=== PATIENT | female | born 1970 | race Two or more races ===

== ENCOUNTER 2020-08-25 11:06 | Outpatient (REF) | payer OTHER, SELFPAY ==
--- NOTE | 2020-08-25 11:24 | XR_ITS ---
EXAMINATION: XR CERVICAL SPINE CLINICAL INFORMATION: Cervicalgia COMPARISON: None TECHNIQUE: 5 views of the cervical spine. FINDINGS: There are no prevertebral soft tissue or bony abnormalities demonstrated. No compression fractures or subluxations are identified. Alignment is maintained at the atlanto-axial articulation. The disc spaces are preserved. Tiny endplate osteophytes are seen at the inferior endplates of C3, C4, C5, and C6. The prevertebral soft tissues are normal. The foramina are patent. The lung apices are clear. IMPRESSION: Tiny endplate osteophytes at multiple levels. Otherwise normal appearance of the cervical spine..
== END 2020-08-25 11:07 | disposition home or self-care (01) ==
LOC: HO.XRAY 11:06
PROVIDERS: PCP Internal Medicine Geriatric Medicine; Visit Provider Internal Medicine Geriatric Medicine
DX: M54.2 Cervicalgia (principal)
CPT/HCPCS: 72050

== ENCOUNTER 2020-11-21 09:10 | Emergency (ER) | payer OTHER, SELFPAY ==
[2020-11-21 09:12] VITALS: BP 166/80; PULSE 78; RESP 18; TEMP 36.4; O2SAT 99; BMI 41.1
--- NOTE | 2020-11-21 10:51 | US_ITS ---
EXAMINATION: US VENOUS ULTRASOUND WITH DOPPLER LOWER EXTREMITY, RIGHT CLINICAL INFORMATION: Atraumatic right knee and calf pain, question DVT COMPARISON: None TECHNIQUE: Ultrasound of the deep veins is performed from the hip to the calf with compression sonography and color and pulse Doppler assessment. Spectral analysis with color-flow imaging is performed. FINDINGS: There is normal venous compression and respiratory variation and augmented flow. The visualized common femoral vein, superficial femoral vein, profunda femoral vein, popliteal vein, and the trifurcation region shows no evidence of deep venous thrombosis. The contralateral common femoral vein is patent. There is no significant popliteal fossa cyst. US/US venous duplex LE RT IMPRESSION: No DVT demonstrated in the right lower extremity.
--- NOTE | 2020-11-21 10:51 | XR_ITS ---
EXAMINATION: XR KNEE, RIGHT CLINICAL INFORMATION: Atraumatic right knee and calf pain COMPARISON: None TECHNIQUE: Four views of the right knee. FINDINGS: There is no acute visible fracture or dislocation. Multicompartment degenerative changes are noted. There is spurring of the tibial spines. Small periarticular osteophytes along the tibial plateau and distal femoral condyle. Subchondral cystic changes are noted at the tibial plateau. Enthesopathy of the patellar tendon insertion site. Small osteophytes are noted projecting at the superior and inferior margins of the patella. A fabella is noted in the posterior compartment. Joint spaces and alignment are otherwise maintained. Small knee joint effusion noted. Soft tissues are unremarkable. XR/XR knee RT 4V IMPRESSION: 1. No acute visible fracture or dislocation. 2. Multicompartment degenerative changes. 3. Small knee joint effusion.
--- NOTE | 2020-11-21 11:06 | PC.NURSE ---
called for us no answer
--- NOTE | 2020-11-21 12:07 | ED.LOWEXIN ---
HPI - Extremity Injury (Lower) General Chief Complaint: Extremity Injury, Lower Stated Complaint: calf pain Time Seen by Provider: 11/21/20 10:51 Source: patient Mode of arrival: ambulatory Limitations: no limitations History of Present Illness HPI Narrative: 50-year-old female presenting to the ED with complaints of atraumatic right posterior knee/calf pain for the past 2 days worse today where she is having to use her cane. Denies any fevers, dizziness, headaches, nausea/vomiting, chest pain, shortness of breath, palpitations, dyspnea on exertion, orthopnea or any symptoms. Denies any additional complaints or concerns at this time. Related Data Previous Rx's Medication Instructions Recorded hydrocodone-acetaminophen [[place]] 1 tab PO Q4-6H PRN #14 tab 11/21/20 naproxen 500 mg PO BID PRN #10 tab 11/21/20 ondansetron HCl [Zofran] 4 mg PO Q6H PRN #14 tab 11/21/20 Allergies Allergy/AdvReac Type Severity Reaction Status Date / Time No Known Allergies Allergy Unverified 07/29/20 15:53 [No Known Allergies*] amoxicillin AdvReac Unknown diarrhea Unverified 09/17/17 00:00 Review of Systems Review of Systems: Cardiovascular : No Chest Pain, No SOB, no palpitations, no dyspnea on exertion, no orthopnea, Respiratory : No Cough Gastrointestinal : No Nausea, No Vomiting, No abdominal Pain Genitourinary : No Dysuria Musculoskeletal : + joint pain, No neck stiffness, No back pain/injury Skin : No lacerations Neuro : No unsteady gait, No Paresthesias Yes all other systems are reviewed and are negative [facility] Past Medical History Attestation statement: The following information was validated with the patient. Medical History HTN (hypertension) Social History Social History Advance Directives: No Advance Directives Information Provided: No Physical Exam Vital Signs: Vital Signs: Last Vital Signs Temp 97.6 F 11/21/20 09:12 Pulse 78 11/21/20 09:12 Resp 18 11/21/20 09:12 BP 166/80 H 11/21/20 09:12 Pulse Ox 99 11/21/20 09:12 Body Mass Index 41.1 Vital signs have been reviewed as normal and appeared to be correct. Blood pressure normal. Heart rate normal. Respiration rate normal. Temperature normal. Oxygen saturation normal. Appearance: Alert. Oriented. No acute distress. Head: Normal external exam. Normocephalic. Atraumatic. Eyes: PERRLA. EOMI. No nystagmus noted. Conjunctiva and sclera normal. Eyelids normal. Corneal reflex normal. ENT:Hearing normal. Pharynx normal. Moist mucous membranes. Neck: Normal inspection. Neck supple. FROM. Nontender. CVS: Normal heart rate and rhythm. Heart sound normal. Pulses normal throughout. Respiratory: No respiratory distress. Painless inspiration. Breath sounds normal. No wheezes/rales/rhonchi noted. Chest nontender. Back: No tenderness noted. Full range of motion noted. Skin: Skin warm and dry. Normal skin color. Normal skin turgor. No rashes/lesions/lacerations noted. Extremities: Patient tender to palpation to right knee joint at the lateral aspect and posterior aspect mild soft tissue swelling. No laxity noted to the ligaments or tendons. Patient has full range of motion. No obvious deformities noted. All others Extremities exhibit normal range of motion and nontender. Neuro: Oriented X 3. No motor deficit. No sensory deficit. Reflexes normal. Moving all extremities. No focal motor deficits. Speech normal. Gait normal. Strength 5/5 throughout. Muscle tone normal throughout. Course Course Course Narrative: 50-year-old female presenting to the ED with complaints of atraumatic right posterior knee/calf pain for the past 2 days worse today where she is having to use her cane. - x-ray obtained and revealed small joint effusion, multi degenerative compartments and osteophytes no evidence of DVT or any fractures or any other acute processes therefore will place in an Pravin wrap and treat symptomatically along with instructions follow-up with primary care provider for referral for physical therapy. I gave the patient a copy of her x-ray and her ultrasound results. Instructed to return if any new or worsening symptoms. Patient understands agrees the plan. MDM - Extremity Injury (Lower) Medical Records Attestation: I reviewed the patient's medical records. Imaging Data R knee xray: Attestation: I personally reviewed and interpreted this imaging study as follows: Radiologist's impression: FINDINGS: There is no acute visible fracture or dislocation. Multicompartment degenerative changes are noted. There is spurring of the tibial spines. Small periarticular osteophytes along the tibial plateau and distal femoral condyle. Subchondral cystic changes are noted at the tibial plateau. Enthesopathy of the patellar tendon insertion site. Small osteophytes are noted projecting at the superior and inferior margins of the patella. A fabella is noted in the posterior compartment. Joint spaces and alignment are otherwise maintained. Small knee joint effusion noted. Soft tissues are unremarkable. IMPRESSION: 1. No acute visible fracture or dislocation. 2. Multicompartment degenerative changes. 3. Small knee joint effusion. RLE US for dvt : Attestation: I personally reviewed and interpreted this imaging study as follows: Radiologist's impression: FINDINGS: There is normal venous compression and respiratory variation and augmented flow. The visualized common femoral vein, superficial femoral vein, profunda femoral vein, popliteal vein, and the trifurcation region shows no evidence of deep venous thrombosis. The contralateral common femoral vein is patent. There is no significant popliteal fossa cyst. IMPRESSION: No DVT demonstrated in the right lower extremity. Discharge Plan Discharge Clinical Impression: Effusion of right knee joint, Arthritis, Subchondral cyst, Osteophyte Patient Disposition: Home, Self-Care Instructions: Swollen Knee Joint (ED), Arthritis (ED) Prescriptions: New hydrocodone-acetaminophen [[place]] 5-325 mg tablet 1 tab PO Q4-6H PRN (Reason: pain) Qty: 14 RF: 0 ondansetron HCl [Zofran] 4 mg tablet 4 mg PO Q6H PRN (Reason: nausea and vomiting) Qty: 14 RF: 0 naproxen 500 mg tablet 500 mg PO BID PRN (Reason: pain) Qty: 10 RF: 0 Referrals: Name,MD Francisco Javier [Primary Care Provider] - 2 days Stand Alone Forms: Work/School Release Print Language: Albanian
== END 2020-11-21 12:50 | disposition home or self-care (01) ==
PROVIDERS: Emergency Provider Emergency Medicine; PCP Internal Medicine Geriatric Medicine
DX: M25.461 Effusion, right knee (principal); M17.11 Unilateral primary osteoarthritis, right knee; R60.0 Localized edema; Z79.899 Other long term (current) drug therapy
CPT/HCPCS: 73564; 93971; 99283

== ENCOUNTER → 2021-01-05 09:00 | Outpatient (BNVA) | payer OTHER, SELFPAY | PROVIDERS: PCP Internal Medicine Geriatric Medicine; Visit Provider Orthopaedic Surgery ==

== ENCOUNTER 2021-04-30 11:06 | Emergency (ER) | payer OTHER, SELFPAY ==
[2021-04-30 11:19] VITALS: BP 144/74; PULSE 75; RESP 14; TEMP 36.8; O2SAT 98; BMI 38.4
--- NOTE | 2021-04-30 11:41 | ED.LOWEXIN ---
HPI - Extremity Injury (Lower) General Chief Complaint: Extremity Injury, Lower Stated Complaint: right knee pain Time Seen by Provider: 04/30/21 11:41 History of Present Illness HPI Narrative: Patient complains of right knee pain and swelling, she stood up 5 days ago and felt a pop in her knee and has had pain since, patient does have history of arthritis in the knee, there was no fall there is no calf pain no calf swelling no leg swelling Related Data Previous Rx's Medication Instructions Recorded hydrocodone-acetaminophen [[place]] 1 tab PO Q4-6H PRN #14 tab 11/21/20 naproxen 500 mg PO BID PRN #10 tab 11/21/20 ondansetron HCl [Zofran] 4 mg PO Q6H PRN #14 tab 11/21/20 acetaminophen 1,000 mg PO QID PRN #30 tab 04/30/21 ibuprofen 600 mg PO Q6H PRN #20 tab 04/30/21 Allergies Allergy/AdvReac Type Severity Reaction Status Date / Time No Known Allergies Allergy Unverified 07/29/20 15:53 [No Known Allergies*] amoxicillin AdvReac Unknown diarrhea Verified 01/05/21 09:10 Review of Systems Review of Systems: Positive for right knee swelling Negatives are no fever no chills no dizziness no weakness no fainting no chest pain no shortness of breath no back pain no numbness weakness or tingling, no other joint pains or swelling Yes all other systems are reviewed and are negative [facility] Past Medical History [facility] Narrative: Positive history of osteoarthritis in the right knee Medical History (Updated 04/30/21 @ 11:59 by HARINI Mark) HTN (hypertension) Surgical History (Updated 04/30/21 @ 11:25 by Indiana Umaña) Delivery by section Social History Social History (Updated 01/05/21 @ 09:11 by Katie Perrin) Advance Directives: No Advance Directives Information Provided: No Patient : No Current occupational status: employed 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 Physical Exam Vital Signs: Vital Signs: Last Vital Signs Temp 98.3 F 04/30/21 11:19 Pulse 75 04/30/21 11:19 Resp 14 04/30/21 11:19 BP 144/74 H 04/30/21 11:19 Pulse Ox 98 04/30/21 11:19 Body Mass Index 38.4 General appearance is no acute distress Head is normocephalic atraumatic Neck is supple Respiratory no distress Extremities the right knee has soft tissue swelling, no redness no warmth, there is tenderness on both medial and lateral joint lines there is no obvious effusion it extends to 180 and flexes to around 90 degrees, the patient has a limping gait but is able to ambulate easily There is no calf tenderness or swelling in either leg, no pedal edema Skin no rashes Neuro no motor or sensory deficits Course Course Course Narrative: Patient with right knee pain and some swelling after standing up from a chair had no fall or no other direct injury She had an x-ray showing osteoarthritis in November and is discharged to follow with Orthopedics Discharge Plan Discharge Clinical Impression: Arthralgia of right knee Patient Disposition: Home, Self-Care Additional Instructions: Your knee pain is likely from the arthritis in her knee that was shown on the x-ray done in November of this year Arthritis tends to wax and wane and the pain you got on standing up is likely from the arthritis If needed follow with orthopedist for further evaluation they often try a steroid shot which is often very helpful Activity as tolerated There is no sign of infection now but return any time for any worse condition or any concerns Prescriptions: New acetaminophen 500 mg tablet 1,000 mg PO QID PRN (Reason: pain) Qty: 30 RF: 0 ibuprofen 600 mg tablet 600 mg PO Q6H PRN (Reason: pain) Qty: 20 RF: 0 No Action hydrocodone-acetaminophen [[place]] 5-325 mg tablet 1 tab PO Q4-6H PRN (Reason: pain) Qty: 14 RF: 0 ondansetron HCl [Zofran] 4 mg tablet 4 mg PO Q6H PRN (Reason: nausea and vomiting) Qty: 14 RF: 0 naproxen 500 mg tablet 500 mg PO BID PRN (Reason: pain) Qty: 10 RF: 0 Referrals: Theodore Barrett MD [Physician] - 2 days (Right knee arthritis pain)
== END 2021-04-30 12:10 | disposition home or self-care (01) ==
PROVIDERS: Emergency Provider Emergency Medicine; PCP Internal Medicine Geriatric Medicine
DX: M25.561 Pain in right knee (principal); I10 Essential (primary) hypertension
CPT/HCPCS: 99283

== ENCOUNTER 2023-05-22 09:02 | Outpatient (REF) | payer OTHER, SELFPAY ==
[2023-05-22 11:12] LABS: MANUAL DIFF FLAG NO
[2023-05-22 11:30] LABS: Basophils Percent Auto 0.4 % (0-2); Eosinophils Absolute Auto 0.2 X10*3/uL (0.0-0.4); Eosinophils Percent Auto 1.9 % (0-4); Hematocrit 36.1 % (37.0-47.0); Imm Gran Abs Auto 0.04 X10*3/uL (0.00-0.03); Imm Gran Pct Auto 0.5 % (0.0-0.4); Lymphocytes Percent Auto 23.3 % (20-40); Mean Corpuscular HGB Conc 30.5 g/dl (31.0-35.0); Mean Platelet Volume 12.1 fL (9.4-12.3); Monocytes Absolute Auto 0.5 X10*3/uL (0.1-1.2); Monocytes Percent Auto 5.4 % (2-11); Neutrophils Absolute Auto 5.8 x10*3/uL (2.0-8.3); Neutrophils Percent Auto 68.5 % (45-73); Platelet Count 165 X10*3/uL (160-400); Red Cell Distribution Width 15.7 % (11.0-16.0); White Blood Count 8.5 X10*3/uL (4.8-10.8)
[2023-05-22 11:44] LABS: Estimated Average Glucose 111 mg/dL; Hemoglobin A1c % 5.5 %
[2023-05-22 11:59] LABS: Alanine Aminotransferase 26 U/L (0-31); Albumin Level 3.9 g/dL (3.5-5.0); Alkaline Phosphatase 85 U/L (39-117); Anion Gap 15 (12-20); Aspartate Amino Transferase 24 U/L (5-31); Bilirubin Total 0.5 mg/dL (0.0-1.0); Blood Urea Nitrogen 11 mg/dL (9-16); Calcium 10.3 mg/dL (8.4-10.2); Carbon Dioxide 23 mmol/L (22-29); Chloride 105 mmol/L (96-108); Cholesterol 155 mg/dL; Estimated Glomerular Filt Rate > 60; Glucose Random 85 mg/dL (60-115); HDL Cholesterol 49 mg/dL; Iron 54 mcg/dL (30-160); LDL Cholesterol Calculated 76 mg/dl; Percent Iron Saturation 15 % (15-50); Potassium 3.7 mmol/L (3.3-5.1); Sodium 139 mmol/L (135-145); Total Iron Binding Capacity 368 mcg/dL (228-428); Triglycerides 150 mg/dL; Unsaturated Iron Binding 314 ug/dL
[2023-05-22 12:05] LABS: Ferritin 53 ng/mL (10-250)
== END 2023-05-22 09:03 | disposition home or self-care (01) ==
LOC: HO.HHCL 09:02
PROVIDERS: Visit Provider Internal Medicine Geriatric Medicine
DX: Z00.00 Encounter for general adult medical examination without abnormal findings (principal); Z13.220 Encounter for screening for lipoid disorders; Z13.1 Encounter for screening for diabetes mellitus; I10 Essential (primary) hypertension; Z86.2 Personal history of diseases of the blood and blood-forming organs and certain disorders involving the immune mechanism
CPT/HCPCS: 36415; 80053; 80061; 82728; 83036; 83540; 85025

== ENCOUNTER 2023-06-06 08:15 | Outpatient (REF) | payer OTHER, SELFPAY ==
--- NOTE | ~2023-06-06 | MM_ITS ---
EXAMINATION: MM SCREENING DIGITAL BREAST TOMOSYNTHESIS, BILATERAL CLINICAL INFORMATION: Screening. Asymptomatic. The lifetime risk of breast cancer based on the Tyrer-Cuzick Model is 12.7%. COMPARISON: Mammography: This study is compared with prior exams dating back to TECHNIQUE: Digital breast tomosynthesis is performed in both the craniocaudal and mediolateral oblique views along with computer-aided detection (CAD). Synthesized 2D images are generated from the tomosynthesis. FINDINGS: There are scattered areas of fibroglandular density (ACR BI-RADS breast composition Category b). There are no suspicious masses, suspicious grouped calcifications, or areas of architectural distortion. The parenchymal pattern is stable from prior exams. In particular, the focal asymmetry in the upper outer left breast posterior one third demonstrates an associated top hat biopsy clip from prior stereotactic biopsy, and also appears smaller than on previous exams. Pathology was benign. MM/MM tomosynthesis screening BI IMPRESSION: No mammographic evidence of malignancy. ASSESSMENT: BI-RADS BI-RADS 2 - Benign Findings RECOMMENDATION: Routine annual mammography screening. 1 year F/U This examination should not preclude the clinical evaluation of a suspicious palpable abnormality. This patient's information was entered into a reminder system with a target due date for their next mammogram.
== END 2023-06-06 08:16 | disposition home or self-care (01) ==
LOC: HO.MAMMO 08:15
PROVIDERS: PCP Internal Medicine Geriatric Medicine; Visit Provider Internal Medicine Geriatric Medicine
DX: Z12.31 Encounter for screening mammogram for malignant neoplasm of breast (principal)
CPT/HCPCS: 77063; 77067

== ENCOUNTER → 2023-06-06 08:45 | Outpatient (BNV) | payer OTHER, SELFPAY | PROVIDERS: PCP Internal Medicine Geriatric Medicine; Visit Provider Radiology Diagnostic Radiology | DX: Z12.31 Encounter for screening mammogram for malignant neoplasm of breast (principal) | CPT/HCPCS: 77063; 77067 ==

== ENCOUNTER 2024-03-04 08:36 | Outpatient (REF) | payer OTHER, SELFPAY ==
[2024-03-04 11:34] LABS: MANUAL DIFF FLAG NO
[2024-03-04 11:44] LABS: Basophils Percent Auto 0.5 % (0-2); Eosinophils Absolute Auto 0.1 X10*3/uL (0.0-0.4); Eosinophils Percent Auto 2.1 % (0-4); Hematocrit 35.8 % (37.0-47.0); Imm Gran Abs Auto 0.03 X10*3/uL (0.00-0.03); Imm Gran Pct Auto 0.5 % (0.0-0.4); Lymphocytes Absolute Auto 1.8 X10*3/uL (1.2-4.9); Lymphocytes Percent Auto 28.9 % (20-40); Mean Corpuscular HGB Conc 30.7 g/dl (31.0-35.0); Mean Corpuscular Hemoglobin 25.3 pg (27.0-33.0); Mean Corpuscular Volume 82.3 fL (80.0-98.0); Mean Platelet Volume 11.4 fL (9.4-12.3); Monocytes Absolute Auto 0.5 X10*3/uL (0.1-1.2); Monocytes Percent Auto 8.5 % (2-11); Neutrophils Absolute Auto 3.7 x10*3/uL (2.0-8.3); Neutrophils Percent Auto 59.5 % (45-73); Platelet Count 170 X10*3/uL (160-400); Red Blood Count 4.35 X10*6/uL (4.20-5.50); White Blood Count 6.2 X10*3/uL (4.8-10.8)
[2024-03-04 12:42] LABS: Anion Gap 10 (12-20); Blood Urea Nitrogen 16 mg/dL (9-16); Calcium 10.1 mg/dL (8.4-10.2); Carbon Dioxide 28 mmol/L (22-29); Chloride 107 mmol/L (96-108); Estimated Glomerular Filt Rate > 60; Ferritin 59 ng/mL (10-250); Glucose Random 93 mg/dL (60-115); Iron 31 mcg/dL (30-160); Percent Iron Saturation 9 % (15-50); Potassium 3.7 mmol/L (3.3-5.1); Sodium 141 mmol/L (135-145); Total Iron Binding Capacity 351 mcg/dL (228-428); Unsaturated Iron Binding 320 ug/dL
== END 2024-03-04 08:37 | disposition home or self-care (01) ==
LOC: HO.HHCL 08:36
PROVIDERS: Visit Provider Internal Medicine Geriatric Medicine
DX: D64.9 Anemia, unspecified (principal)
CPT/HCPCS: 36415; 80048; 82728; 83540; 85025

== ENCOUNTER 2024-05-07 08:55 | Outpatient (REF) | payer OTHER, SELFPAY ==
[2024-05-07 11:57] LABS: HIV AB/AG Nonreactive (Nonreactive); HIV Num 1 0.04 S/CO (0.00-0.99); ~HepC Num1 0.22 S/CO (0.00-0.79); ~Hepatitis C Antibody Nonreactive (Nonreactive)
[2024-05-12 18:09] LABS: HPV mRNA E6/E7 Not Detected (Not Detected)
== END 2024-05-07 08:56 | disposition home or self-care (01) ==
LOC: HO.HHCL 08:55
PROVIDERS: Nurse Practitioner; Visit Provider Internal Medicine Geriatric Medicine
DX: Z11.4 Encounter for screening for human immunodeficiency virus [HIV] (principal); Z11.59 Encounter for screening for other viral diseases; Z12.4 Encounter for screening for malignant neoplasm of cervix
CPT/HCPCS: 36415; 86803; 87389; 87624; 88175

== ENCOUNTER 2024-06-09 08:19 | Outpatient (REF) | payer BC, SELFPAY ==
--- NOTE | ~2024-06-09 | MM_ITS ---
EXAMINATION: MM SCREENING DIGITAL BREAST TOMOSYNTHESIS, BILATERAL CLINICAL INFORMATION: Screening. Asymptomatic. COMPARISON: Mammography: This study is compared with prior exams dating back to 2017. TECHNIQUE: Digital breast tomosynthesis is performed in both the craniocaudal and mediolateral oblique views along with computer-aided detection (CAD). Synthesized 2D images are generated from the tomosynthesis. FINDINGS: There are scattered areas of fibroglandular density (ACR BI-RADS breast composition Category b). There are no significant masses, abnormal calcifications, or other abnormalities. There is a biopsy tissue marker in an unchanged, benign focal asymmetry of the upper outer quadrant of the left breast. MM/MM tomosynthesis screening BI IMPRESSION: No mammographic evidence of malignancy. ASSESSMENT: BI-RADS BI-RADS 2 - Benign Findings RECOMMENDATION: Routine annual mammography screening. 1 year F/U This examination should not preclude the clinical evaluation of a suspicious palpable abnormality. This patient's information was entered into a reminder system with a target due date for their next mammogram.
== END 2024-06-09 08:20 | disposition home or self-care (01) ==
LOC: HO.MAMMO 08:19
PROVIDERS: PCP Internal Medicine Geriatric Medicine; Visit Provider Internal Medicine Geriatric Medicine
DX: Z12.31 Encounter for screening mammogram for malignant neoplasm of breast (principal)
CPT/HCPCS: 77063; 77067

== ENCOUNTER → 2024-06-09 08:30 | Outpatient (BNV) | payer BC, SELFPAY | PROVIDERS: PCP Internal Medicine Geriatric Medicine; Visit Provider Radiology Diagnostic Radiology | DX: Z12.31 Encounter for screening mammogram for malignant neoplasm of breast (principal) | CPT/HCPCS: 77063; 77067 ==

== ENCOUNTER 2024-06-26 09:12 | Outpatient (AMB) | payer BC, SELFPAY ==
--- NOTE | 2024-06-26 09:15 | A.OFFVIS_ITS ---
Vital Signs 3 06/26/24 09:16 Height 5 ft 2 in Weight 212 lb 15.465 oz BMI 38.9 BP 123/61 Blood Pressure Location Rt brachial Position Sitting Pulse 72 Intake Visit Reasons: Colonoscopy Screening Intake Note: Christina presents to in office visit as a new patient for colonoscopy screening. CC: Patient reports constipation, occasional bloating, a hemorrhoid, and occasional blood on higienic paper when she wipes after BM. Patient denies having any other GI symptoms. She has never had a colonoscopy done. Clerk Specialist Required: No Accompanied by: Self / Same As Patient Allergies No Known Allergies [No Known Allergies*] Allergy (Verified 06/26/24 09:20) amoxicillin Adverse Reaction (Unknown, Verified 06/26/24 09:20) diarrhea HPI HPI Colonoscopy Screening: Details: 54-year-old female here for preprocedural meeting to discuss a screening colonoscopy. She is referred by [facility]. PMX Asthma Morbid obesity -BMI 40 Allergic rhinitis Hypertension Menometrorrhagia Anemia Osteoarthritis of the right knee Rosacea * SURGICAL HISTORY Breast biopsy section * ALLERGIES Amoxicillin - DIARRHEA * [employer] LABS: Laboratory Tests 03/04/24 08:42 WBC 6.2 Hgb 11.0 L Hct 35.8 L MCV 82.3 MCH 25.3 L MCHC 30.7 L Plt Count 170 Estimated GFR > 60 TODAY'S VISIT This is her first colonoscopy. She has occasional CIC suly with her iron therapy and no upper GI problems. She has occasional rectal bleeding and known hemorrhoids. She is naive to anesthesia and sedation Her asthma is well controlled and she denies cardiac problems. No ID problems. Her father had polyps and a maternal uncle who of CRC. 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 Review of Systems Const Denies fatigue, Denies fever(s), Denies night sweats, Denies poor appetite and Denies weight loss Eyes Details: glasses Reports requires corrective lenses ENT Reports Normal hearing present, Denies dental pain, Denies dysphagia, Denies hearing loss, Denies mouth pain, Denies odynophagia, Denies throat swelling, Denies tongue swelling and Reports other (Dentition adequate) GI Details: Denies abdominal pain, Denies melena, Denies bloating, Denies hematochezia, Denies constipation, Denies GI cramping, Denies dysphagia, Denies excessive flatus, Denies early satiety, Denies heartburn, Denies diarrhea, Denies nausea, Denies odynophagia, Denies vomiting and Denies hematemesis Skin/Breast Denies pruritus, Denies lesions, Denies rash and Denies jaundice Neuro Reports Normal hearing present and Denies Abnormal speech present Endo Denies fatigue Aller/Immun Denies throat swelling and Denies tongue swelling Physical Exam Const General: cooperative, no acute distress, well developed and well groomed Nutritional Appearance: well nourished and obese morbidly obese Orientation/consciousness: oriented to person, oriented to place and oriented to time Limitations: No language barrier HEENT Head: Yes normocephalic and Yes atraumatic Teeth and gingiva: poor dentition Eyes General: appearance normal, both eyes and all related structures Pupils: Equal, round and reactive pupils present Neck Neck: Yes normal visual inspection and Yes no lymphadenopathy Thyroid: Thyroid normal Resp Effort & Inspection: normal respiratory effort and able to speak in complete sentences Auscultation: clear to auscultation bilaterally Cardio Rate: regular rate Rhythm: regular rhythm Heart sounds: Normal, physiologic split S2 sound present Peripheral pulses: radial pulses present and posterior tibial pulses present GI Inspection: No distended, Yes Abdominal panniculus present and Yes obesity Palpation (GI): Soft to palpation, nontender, no guarding, not rigid and No hepatosplenomegaly present Percussion: Yes normal to percussion Auscultation: normal bowel sounds Rectal Exam - Female: deferred Abdomen image: 2 1. surgical scar Skin General skin exam: no rashes or lesions noted, turgor normal, skin not dry, no jaundice, No spider nevi and no striae Rashes: no rashes Nails: normal Neuro General: oriented to person, oriented to place and oriented to time Cranial nerves: Yes Equal, round and reactive pupils present and Yes Normal hearing present Speech: No Abnormal speech present Extrem General: Yes normal to inspection, No clubbing, No cyanosis and No edema Psych Appearance: grossly normal and well kempt Mental Status: mental status grossly normal Speech and movement: Normal speech and movement present Affect: normal affect Attitude: cooperative Thought process: Normal thought process present and not confabulating Thought content: Normal thought content present Insight: Good insight present (Psych) Judgement: Good judgement present (Psych) Assessment & Plan Assessment & Plan (1) Pre-op examination: Code(s): Z01.818 - Encounter for other preprocedural examination Category: Medical (2) Family history of polyps in the colon: Comment: Father; paternal uncle of colon cancer Code(s): Z83.719 - Family history of colon polyps, unspecified Category: Medical Plan This is her first colonoscopy. She has occasional CIC suly with her iron therapy and no upper GI problems. She has occasional rectal bleeding and known hemorrhoids. She is naive to anesthesia and sedation Her asthma is well controlled and she denies cardiac problems. No ID problems. Her father had polyps and a maternal uncle who of CRC. Orders: Orders 2 Comprehensive Met. Panel Today Z01.818 - Encounter for other preprocedural examination Colonoscopy - GI Use Only Today Z01.818 - Encounter for other preprocedural examination Medications: New 2 bisacodyl (Dulcolax (bisacodyl)) 10 mg (2 x 5 mg) PO BEDTIME 2 days 4 tabs 0RF peg 3350-electrolytes 236-22.74-6.74 -5.86 gram (Golytely) until fecal effluent is clear; do not exceed a total volume of 2,000 mL 240 mL PO Q10M 1 day 4,000 mL 0RF Z12.11 - Encounter for screening for malignant neoplasm of colon Refilled 2 ibuprofen 600 mg PO Q6H PRN 20 tabs 0RF pain Coding Level of Care Code New Pt Level 3 (92496) Diagnoses Pre-op examination Z01.818 Family history of polyps in the colon Z83.719
[2024-06-26 09:16] VITALS: BP 123/61; PULSE 72; BMI 38.9
== END 2024-06-26 09:43 | disposition home or self-care (01) ==
PROVIDERS: PCP Internal Medicine Geriatric Medicine; Visit Provider Nurse Practitioner
DX: Z01.818 Encounter for other preprocedural examination (principal); Z12.11 Encounter for screening for malignant neoplasm of colon; Z83.719 Family history of colon polyps, unspecified
CPT/HCPCS: S0285

== ENCOUNTER → 2024-06-26 09:12 | Outpatient (BNVA) | payer BC, SELFPAY | PROVIDERS: PCP Internal Medicine Geriatric Medicine; Visit Provider Nurse Practitioner ==

== ENCOUNTER 2025-06-15 08:06 | Outpatient (REF) | payer BC, SELFPAY ==
--- OUTSIDE RECORDS SUMMARY | 2025-06-15 08:10 | XMS_ITS | Clinical Summary ---
Author Organization [employer] Address [address] 7 [place] [address] Care Team Providers Care Roll Setter Name Role Phone Name, Francisco Javier TOURE Primary Care Provider [phone] Allergies Active Allergy Reactions Criticality Noted Date Comments Amoxicillin 11/20/2016 Medications cetirizine (ZyrTEC) 10 MG tabletIndicatio ns:Seasonal allergic rhinitis, unspecified trigger Take 1 tablet (10 mg) by mouth in the morning. 30 tablet 2 12/12/19 24 Active hydrocortisone (Anusol-HC) 2.5 % rectal creamIndication s:External hemorrhoid Insert into the rectum 2 times daily. 28 g 1 05/07/20 24 Active fluticasone (Flonase) 50 MCG/ACT nasal spray Administer 2 sprays into each nostril Once per day. Shake gently. Before first use, prime pump. After use, clean tip and replace cap. 16 g 2 08/04/20 24 025 Active cetirizine (ZyrTEC) 10 MG tablet Take 1 tablet (10 mg) by mouth Once per day. 30 tablet 2 08/04/20 24 Active lisinopril 20 MG tabletIndicatio ns:Hypertension , unspecified type TAKE 1 TABLET BY MOUTH EVERY DAY IN THE MORNING 90 tablet 3 12/30/19 25 Active ferrous sulfate (FeroSul) 325 (65 Fe) MG tabletIndicatio ns:Anemia, unspecified type Take 1 tablet (325 mg) by mouth every other day. 45 tablet 3 03/26/20 25 Active Semaglutide-Malachi ght Management (Wegovy) 2.4 MG/0.75ML solution auto-injector INJECT ONE PEN (=2.4 MG) SUBCUTANEOUSLY ONCE A WEEK 3 mL 05/07/20 25 Active Active Problems Problem Noted Date Diagnosed Date Cervical cancer screening 05/07/2024 Assessment & Plan (08/07/2024 10:33 AM EDT): -pap with HPV in 5 years if today test normal -mammogram scheduled prior to today -reviewed normal vs abnormal perimenopausal bleeding patterns -although not 67, patient may be eligible for osteoporosis given father's history of fracture. She declined bone density scan at this time. Advised to increase dietary intake of calcium and vitamin D Rosacea 05/22/2023 Hypertensive disorder 04/19/2023 Morbid obesity 04/19/2023 Osteoarthritis of right knee 04/19/2023 Knee pain 09/12/2017 Resolved Problems Problem Noted Date Diagnosed Date Resolved Date Obesity (BMI 30-39.9) 04/19/20232023 Encounters Date Type Department Care Team Description 06/12/2025 Telephone [facility] [address] [place] [phone] Francisco Javier Tony MD Med Refill 05/14/2025 Telephone [facility] [address] [place] [phone] Vlad Murphy MA july recalls 05/07/2025 11:30 AM EDT Office Visit [facility] [address] [place] [phone] Francisco Javier Tony MD Obesity (BMI 30.0-34.9) (Primary Dx); Anemia, unspecified type 05/07/2025 Travel 05/06/2025 Telephone [facility] [address] [place] [address] Isaura Arreola MA Chart Prep 05/04/2025 Telephone [facility] [address] [place] [address] Francisco Javier Tony MD Med Refill 03/26/2025 Refill [facility] [address] [place] [address] Francisco Javier Tony MD Anemia, unspecified type from Last 3 Months Immunizations Immunization Administration Dates Next Due Hep B, adult 08/19/2019 Influenza Injectable Quadriv alant Preservative Free IIV4 MDCK 08/08/2022,08/09/2021,08/04/2020 Influenza injectable quadriv alent IIV4 with preservative 08/28/2017 Influenza injectable quadriv alent preservative free 08/03/2023,08/19/2019,09/27/2018 Influenza, seasonal, injecta ble, preservative free 08/04/2024,10/12/2004 Pfizer Covid-19 Vaccine 12+ 08/04/2024 TD (adult), 2 Lf tetanus tox oid, preservative free, adsorbed 10/12/2004 Td (adult), 5 Lf tetanus tox oid, preservative free, adsorbed 12/13/2003 Tdap 12/18/2016 Social History Tobacco Use Types Packs/Day Years Used Date Smoking Tobacco: Never Smokeless Tobacco: Never Tobacco Cessation:Counseling Given: Not Answered Alcohol Use Standard Drinks/Week Comments Not Currently 0 (1 standard drink = 0.6 oz pur e alcohol) Depression Answer Date Recorded Patient Health Questionnaire-9 Score 0 05/07/2025 Patient Health Questionnaire-9 Score 0 05/07/2025 Last PHQ-9: Questionnaire Data Not on file 0 05/07/2025 Housing Stability Answer Date Recorded What is your housing situation today? I have ann eastman 05/07/[address] you li ve. Do you have problems with any of the following? None of the above 05/07/2025 Food Insecurity Answer Date Recorded Within the past 12 months, y ou worried that your food would run out before you got money to buy more: Never True 05/07/2025 Within the past 12 months,th e food you bought just didn't last and you didn't have enough money to get more: Never True Transportation Answer Date Recorded In the past 12 months, has l ack of transportation kept you from medical appts, meetings, work or from getting things needed for daily living? No 05/07/2025 Utilities Answer Date Recorded In the past 12 months, has t he electric, gas, oil or water company threatened to shut off services in your home? No 05/07/2025 Depression Answer Date Recorded Patient Health Questionnaire-2 Score 0 05/07/2025 Internet Access Answer Date Recorded Internet Access Q1 Yes 05/07/2025 Internet Access Q2 Not on file 05/07/2025 Comments Unknown Sex and Gender Information Value Date Recorded Sex Assigned at Female 09/11/2022 10:30 AM EDT Legal Sex Female 10:30 AM EDT Gender Identity Female 09/11/2022 10:30 AM EDT Sexual Orientation Choose not to disclose 2021 10:30 AM EDT Last Filed Vital Signs Vital Sign Reading Time Taken Comments Blood Pressure 136/74 05/07/2025 11:42 AM EDT Pulse 68 05/07/2025 11:42 AM EDT Temperature 36.5 C (97.7 F) 05/07/2025 11:42 AM EDT Respiratory Rate 18 05/07/2025 11:42 AM EDT Oxygen Saturation 96% 05/07/2025 11:42 AM EDT Inhaled Oxygen Concentration - - Weight 82.2 kg (181 lb 3.2 oz) 05/07/2025 11:42 AM EDT Height 160 cm (5' 3 ) 05/07/2025 11:42 AM EDT Body Mass Index 32.1 05/07/2025 11:42 AM EDT Plan of Treatment Upcoming Encounters Date Type Department Care Team (Late st Contact Info) Description 08/13/2025 9:15 AM EDT Office Visit [facility] [address] [place] [phone] Name, MD Francisco Javier [address] [place] [address] Health Maintenance Due Date Last Done Comments CT Colonography 1972 Colonoscopy 1972 Colorectal Cancer Screening 1972 FIT DNA/Cologuard 1972 FIT 1972 FOBT 1972 Sigmoidoscopy 1972 Hepatitis B Vaccines (2 of 3 - 19+ 3-dose series) 09/16/2019 08/19/2019 Pneumococcal Vaccine: 50+ Years (1 of 1 - PCV) 2022 Zoster Vaccines (1 of 2) 2022 Mammogram 06/09/2025 06/09/2024, 05/13, 06/06/2023 Influenza Vaccine (#1) 2025 , 08/03/2023, 08/08/2022, Additional history exists Alcohol/Substance Use Screening 05/07/2026 05/07/2025 Depression Screening 05/07/2026 05/07/2025, 05/07/20 Disability Screening 05/07/2026 05/07/2025 SDOH Screening 05/07/2026 05/07/2025 Tobacco Screening 05/07/2026 05/07/2025 DTaP/Tdap/Td Vaccines (2 - Td or Tdap) 12/18/2026 12/18/2016, 10/12/2004, 12/13/2003 Lipid Panel 05/22/2028 05/22/2023 Cervical Cancer Screening 05/07/2029 HPV/Cotest 05/07/2029 05/07/2024 Pap Smear 05/07/2029 05/07/2024 RSV Patients and Patients Aged 60 years or older (1 - 1-dose 75+ series) 2047 HIV Screening Completed 05/07/2024 Hepatitis C Screening Completed 05/07/2024 COVID-19 Vaccine Completed 08/04/2024, 07/2023, 11/07/2021, Additional history exists HIB Vaccines Aged Out No longer eligi ble based on patient's age to complete this topic HPV Vaccines Aged Out No longer eligi ble based on patient's age to complete this topic Hepatitis A Vaccines Aged Out No long er eligible based on patient's age to complete this topic IPV Vaccines Aged Out No longer eligi ble based on patient's age to complete this topic Meningococcal B Vaccine Aged Out No l onger eligible based on patient's age to complete this topic Meningococcal Vaccine Aged Out No kristyn luis e eligible based on patient's age to complete this topic RSV under 20 months Aged Out No longe r eligible based on patient's age to complete this topic Rotavirus Vaccines Aged Out No longer eligible based on patient's age to complete this topic Procedures Procedure Name Priority Date/Time Associated Diagnosis Comments POCT HEMOGLOBIN Routine 05/07/2025 12:00 PM EDT Anemia, unspecified type BI MAMMOGRAM SCREENING TOMOSYNTHESIS BILATERAL Routine 06/09/2024 8:49 AM EDT HEPATITIS C AB W/REFL TO HCV RNA, QN, PCR Routine 05/07/2024 8:57 AM EDT Need for hepatitis C screening test HIV 1/2 ANTIGEN/ANTIBODY, FOURTH GENERATION W/RFL Routine 05/07/2024 8:57 AM EDT Screening for HIV (human immunodeficiency virus) THINPREP IMAGING PAP AND HPV MRNA E6/E7 WITH REFLEX TO HPV 16,18/45 Routine 05/07/2024 12:00 AM EDT LIPID PANEL, STANDARD Routine 05/22/2023 9:10 AM EDT from Last 3 Months or Most Recently Relevant to Health Maintenance Results * (ABNORMAL) POCT Hemoglobin (05/07/2025 12:00 PM EDT) Hemoglobin 11.5(A) 12.0 - 15.0 QC Media Lot # [id number] Lot# Expiration Date Blood 05/07/2025 12:0 0 PM EDT Francisco Javier Tony MD POINT OF CARE TEST ENTER/EDIT OR DERABLES Final Result * BI Mammogram Screening Tomosynthesis Bilateral (06/09/2024 8:49 AM EDT) Anatomical Region Laterality Modality Breast Bilateral Mammography 06/09/2024 8:49 AM EDT Narrative 06/09/2024 11:28 AM EDT [facility] [address] [place] [address] Dr. [place], JAGUAR [address] Mammography Report Signed Patient: Christina Meraz MR#: [id number] 55 : 1970 Acct:[id number] Age/Sex: 54 / F ADM Date: 06/09/24 Loc: HO.MAMMO Attending Dr: Francisco Javier Tony MD Ordering Physician: Francisco Javier Tony MD Results: 2Benign Fi ndings Date of Service: 06/09/24 Follow Up: 1 Year From Orig inal Mammogram Procedure(s): MM tomosynthesis screening BI Accession Number(s): [id number] cc: Francisco Javier Tony MD EXAMINATION: MM SCREENING DIGITAL BREAST TOMOSYNTHESIS, BILATERAL CLINICAL INFORMATION: Screening. Asymptomatic. COMPARISON: Mammography: This study is compared with prior exams dating back to 2017. TECHNIQUE: Digital breast tomosynthesis is performed in both the craniocaudal and mediolateral oblique views along with computer-aided detection (CAD). Synthesized 2D images are generated from the tomosynthesis. FINDINGS: There are scattered areas of fibroglandular density (ACR BI-RADS breast composition Category b). There are no significant masses, abnormal calcifications, or other abnormalities. There is a biopsy tissue marker in an unchanged, benign focal asymmetry of the upper outer quadrant of the left breast. MM/MM tomosynthesis screening BI IMPRESSION: No mammographic evidence of malignancy. ASSESSMENT: BI-RADS BI-RADS 2 - Benign Findings RECOMMENDATION: Routine annual mammography screening. 1 year F/U This examination should not preclude the clinical evaluation of a suspicious palpable abnormality. This patient's information was entered into a reminder system with a target due date for their next mammogram. Dictated By: Eugenia Leahy MD Signed By: <Electronically signed by Eugenia Leahy MD in OV> 06/09/24 1125 DD/ 0849 TD/TT: Power Crane Operator: Procedure Note Donotuseinterpreter, Image - 06/09/2024 [facility] [address] [place] [address] Mammography Report Signed Patient: Christina Meraz#: [id number] 55 : 1970Acct:[id number] Age/Sex: 54 / FADM Date: 06/09/24 Loc: TED Attending Dr: Francisco Javier Tony MD Ordering Physician: Francisco Javier Tony MDResults: 2Benign Fi ndings Date of Service: 06/09/24Follow Up: 1 Year From Orig inal Mammogram Procedure(s): MM tomosynthesis screening BI Accession Number(s): [id number] cc: Francisco Javier Tony MD EXAMINATION: MM SCREENING DIGITAL BREAST TOMOSYNTHESIS, BILATERAL CLINICAL INFORMATION: Screening. Asymptomatic. COMPARISON: Mammography: This study is compared with prior exams dating back to 2017. TECHNIQUE: Digital breast tomosynthesis is performed in both the craniocaudal and mediolateral oblique views along with computer-aided detection (CAD). Synthesized 2D images are generated from the tomosynthesis. FINDINGS: There are scattered areas of fibroglandular density (ACR BI-RADS breast composition Category b). There are no significant masses, abnormal calcifications, or other abnormalities. There is a biopsy tissue marker in an unchanged, benign focal asymmetry of the upper outer quadrant of the left breast. MM/MM tomosynthesis screening BI IMPRESSION: No mammographic evidence of malignancy. ASSESSMENT: BI-RADS BI-RADS 2 - Benign Findings RECOMMENDATION: Routine annual mammography screening. 1 year F/U This examination should not preclude the clinical evaluation of a suspicious palpable abnormality. This patient's information was entered into a reminder system with a target due date for their next mammogram. Dictated By: Eugenia Leahy MD Signed By: <Electronically signed by Eugenia Leahy MD in OV> 06/09/24 1125 DD/ 0849 TD/TT: Power Crane Operator: us Francisco Javier Tony MD IMG BI PROCEDURES Final Result * Hepatitis C Antibody with Reflex to HCV, RNA, Quantitative, Real-Time PCR (05/07/2024 8:57 AM EDT) Hepatitis C Antibody Nonreactive Nonreactive [facility] Comment:Antibodies to HCV no t detected; does not exclude early acuteHCV infection. Blood Venous blood specimen / Unknown 05/07/2024 8:57 AM EDT 05/07/2024 11:14 AM EDT us Francisco Javier Tony MD LAB BLOOD ORDERABLES Final Resul t [facility] [address] [place] [phone] * HIV-1/2 Antigen and Antibodies, Fourth Generation, with Reflexes (05/07/2024 8:57 AM EDT) HIV AB/AG Nonreactive Nonreactive [facility] Comment:HIV-1 p24 Ag and/or HIV-1/HIV-2 Ab not detected.A test result that is nonreactive does not exclude thepossibility of exposure to or infection with HIV-1 and/orHIV-2. Nonreactive results in this assay for individualswith prior exposure to HIV-1 and/or HIV-2 may be due toantigen and antibody levels that are below the limit ofdetection of this assay.The [employer] HIV Ag/Ab Combo assay result andsupplemental assay results should be interpreted inconjunction with the patient's clinical presentation,history and other laboratory results. If the results areinconsistent with clinical evidence, additional testing issuggested to confirm the result. Blood Venous blood specimen / Unknown 05/07/2024 8:57 AM EDT 05/07/2024 11:14 AM EDT us Francisco Javier Tony MD LAB BLOOD ORDERABLES Final Resul t [facility] [address] [place] [address] [phone] * ThinPrep Imaging Pap and HPV mRNA E6/E7 with Reflex to HPV 16,18/45 (05/07/2024 12:00 AM EDT) Pathologist [facility] HPV 16 RNA TNP [facility] HPV 18/45 RNA [facility] HPV nRNA E6/E7 Not Detected Not Detected [facility] Comment:Methodology: Transcr iption-Mediated AmplificationThis assay detects E6/E7 viral messenger RNA (mRNA) from 14high-risk HPV types (16,18,31,33,35,39,45,51,52,56,58,59,66,68).Cervical sources are required for HPV testing.If a vaginal source from a patient who has had atotal hysterectomy with removal of cervix wassubmitted, please contact the testing laboratoryfor alternative testing options.For additional information, please refer [email or web address].[employer]/faq/EUB980b7(This link if provided for information/educational purposes only.)THIS TEST WAS PERFORMED AT:[employer] [address] [id number] DUNNE MD SOURCE: SEE NOTE [facility] Comment:Cervix Report Status: [facility] Clinical Information: SEE NOTE [facility] Comment:ROUTINE LMP: SEE NOTE [facility] Comment:04/07/24 Prev. PAP: SEE NOTE [facility] Comment:8 YRS AGO Prev. BX: SEE NOTE [facility] Comment:NONE GIVEN Statement Of Adequacy: SEE NOTE [facility] Comment:Satisfactory for pily luation.Endocervical/transformation zone component absent. General Categorization: [facility] Interpretation/Result: SEE NOTE [facility] Comment:Cytology Results: Ne gative for intraepitheliallesion or malignancy. Cytology Comment SEE NOTE [facility] Comment:This Pap test has be en evaluated with computerassisted technology. Vehicle Check In Clerk: SEE NOTE [facility] Comment:EXJ, CT(ASCP)CT Scre ening Location: [place] [address] Review Vehicle Check In Clerk: [facility] Pathologist [facility] PAP Infection [facility] See Note SEE NOTE [facility] Comment:EXPLANATORY NOTE:The Pap is a screening test for cervical cancer. It isnot a diagnostic test and is subject to false negativeand false positive results. It is most reliable when asatisfactory sample, regularly obtained, is submittedwith relevant clinical findings and history, and whenthe Pap result is evaluated along with historic andcurrent clinical information. 05/07/2024 05/07/2024 Narrative [facility] - 05/14/2024 8:56 AM EDT SEE EMR FOR SCANNED [id number] AGO Jeniffer Serrano NP LAB PATHOLOGY ORDERABLES Final Result [facility] [address] [place] [phone] [phone] * Lipid Panel, Standard (05/22/2023 9:10 AM EDT) Triglycerides 150 mg/dL [facility] Comment:Desirable Triglyceri de: less than 150 mg/dLBorderline High Triglyceride 150-199 mg/dLHigh Triglyceride: 200-499 mg/dLVery High Triglyceride: greater than or equal to 5OO mg/dL Cholesterol 155 mg/dL [facility] Comment:Desirable Cholestero l: less than 200 mg/dLBorderline High Cholesterol: 200-239 mg/dLHigh Cholesterol: greater than 239 mg/dL LDL Cholesterol Calculated 76 mg/dl [facility] Comment:Desirable LDL: less than 100 mg/dLNear Optimal/Above Optimal LDL: 110- 129 mg/dLBorderline High LDL: 130-159 mg/dLHigh LDL: 160-189 mg/dLVery High LDL: greater than or equal to 190 mg/dL HDL Cholesterol 49 mg/dL [facility] Comment:Desirable HDL: great er than 40 mg/dL Note: This HDL assay may give artificially low results in patients with liver disease. 05/22/2023 9:10 AM EDT 05/22/2023 11:07 AM EDT [facility] External Provider LAB BLO OD ORDERABLES Final Result [facility] [address] [place] [phone] from Last 3 Months or Most Recently Relevant to Health Maintenance Insurance [facility] H[facility] Care Teams Roll Setter Relationship Specialty Start Date End Date Name, MD Francisco Javier [address] [place] [address] PCP - General Family Medicine 11/20/16
== END 2025-06-15 08:07 | disposition home or self-care (01) ==
LOC: HO.MAMMO 08:06
PROVIDERS: PCP Internal Medicine Geriatric Medicine; Visit Provider Internal Medicine Geriatric Medicine
DX: Z12.31 Encounter for screening mammogram for malignant neoplasm of breast (principal)
CPT/HCPCS: 77063; 77067

== ENCOUNTER → 2025-06-15 08:15 | Outpatient (BNV) | payer BC, SELFPAY | PROVIDERS: PCP Internal Medicine Geriatric Medicine; Visit Provider Internal Medicine | DX: Z12.31 Encounter for screening mammogram for malignant neoplasm of breast (principal) | CPT/HCPCS: 77063; 77067 ==